=== PATIENT | male | born 1950 | race Caucasian/White ===

== ENCOUNTER 2017-04-24 14:23 | Observation (INO) | payer MEDICARE, OTHER ==
[2017-04-24] MEDS ORDERED: Sodium Chloride 0.9% 10 ML Syringe FLUSH PRN (14:45)
[2017-04-24] MEDS ORDERED: Aspirin 81 MG Tab.Chew PO ONE (14:45)
--- NOTE | 2017-04-24 14:51 | EDM.PDOC ---
ED HPI GENERAL MEDICAL PROBLEM - General Chief Complaint: Chest Pain Stated Complaint: PULSE 94,CHEST PAINS,BLURRINESS Time Seen by Provider: 04/24/17 14:36 Source of Information: Reports: Patient, Family History Limitations: Reports: No Limitations - History of Present Illness INITIAL COMMENTS - FREE TEXT/NARRATIVE: Patient was at home working on his truck bent over when he stood up abruptly he became dizzy lightheaded blurry vision and midsternal chest pain. He went into the house and at his and the human emergency Department right away patient states that he was been having abdominal bit difficulty keeping his balance feels really dizzy and lightheaded along with that he still has midsternal chest pain does not radiate into the shoulders are no however earlier he did say that it was radiating up to his left shoulder. Patient denies any cardiac history shortness of breath no nausea or vomiting Onset: Sudden Onset Time: 01:00 Duration: Hour(s): Location: Reports: Chest, Upper Extremity, Right Quality: Reports: Pressure Severity: Mild (3/10 pain) Associated Symptoms: Reports: Diaphoresis, Nausea/Vomiting Middle Chest Pain Score (Numeric/FACES): 5 - Related Data Allergies Allergy/AdvReac Type Severity Reaction Status Date / Time No Known Allergies Allergy Verified 04/24/17 14:34 Home Meds: Home Meds Gabapentin [Gabapentin] 600 mg PO TID 01/10/14 [History] Methadone HCl [Methadone HCl] 5 mg PO BID 01/10/14 [History] atorvaSTATin [Lipitor] 40 mg PO DAILY 01/10/14 [History] Aspirin [Halfprin] 81 mg PO DAILY 05/13/15 [History] Methotrexate 15 mg PO WEEKLY 05/13/15 [History] Sertraline [Zoloft] 1 tab PO DAILY 05/13/15 [History] Lutein/Minerals/Vit A,C & E [Ocuvite] 1 tab PO DAILY 05/16/15 [History] Meloxicam [Mobic] 15 mg PO DAILY 04/24/17 [History] Omeprazole Magnesium [Prilosec Otc] 40 mg PO DAILY 04/24/17 [History] Pramipexole [Mirapex] 0.5 mg PO BEDTIME 04/24/17 [History] Past Medical History - Past Health History Medical/Surgical History: Denies Medical/Surgical History Cardiovascular History: Reports: High Cholesterol Respiratory History: Reports: Sleep Apnea Gastrointestinal History: Reports: Colon Polyp, GERD, PUD Other Gastrointestinal History: abd. pain and bloating, dyspepsia Musculoskeletal History: Reports: Osteoarthritis, Other (See Below) Other Musculoskeletal History: Restless legs Psychiatric History: Reports: Other (See Below) Other Psychiatric History: irritability Endocrine/Metabolic History: Reports: None Hematologic History: Reports: None Immunologic History: Reports: None Dermatologic History: Reports: Psoriasis - Past Surgical History GI Surgical History: Reports: Cholecystectomy Musculoskeletal Surgical History: Reports: Shoulder Surgery Social & Family History - Family History HEENT: Reports: None Cardiac: Reports: None Respiratory: Reports: None GI: Reports: None - Tobacco Use Smoking Status *Q: Current Every Day Smoker Years of Tobacco use: 25 Packs/Tins Daily: 0.5 - Alcohol Use Days Per Week of Alcohol Use: 2 Number of Drinks Per Day: 2 Total Drinks Per Week: 4 - Recreational Drug Use Recreational Drug Use: No ED ROS GENERAL - Review of Systems Review Of Systems: See Below Constitutional: Reports: Diaphoresis HEENT: Reports: No Symptoms Respiratory: Reports: No Symptoms Cardiovascular: Reports: Chest Pain, Lightheadedness Endocrine: Reports: No Symptoms GI/Abdominal: Reports: No Symptoms : Reports: No Symptoms Musculoskeletal: Reports: No Symptoms Skin: Reports: No Symptoms ED EXAM, GENERAL - Physical Exam Exam: See Below Exam Limited By: No Limitations General Appearance: Alert, WD/WN, No Apparent Distress Respiratory/Chest: No Respiratory Distress, Lungs Clear, Normal Breath Sounds, No Accessory Muscle Use, Chest Non-Tender Cardiovascular: Normal Peripheral Pulses, Regular Rate, Rhythm, No Edema, No Gallop, No Murmur, No Rub GI/Abdominal: Normal Bowel Sounds, Non-Tender, No Organomegaly, No Distention, No Abnormal Bruit, No Mass, Pelvis Stable (Male) Exam: Deferred Rectal (Males) Exam: Deferred Back Exam: Normal Inspection, Full Range of Motion Extremities: Normal Inspection, Normal Range of Motion, Non-Tender, No Pedal Edema Neurological: Alert, Oriented, CN II-XII Intact, Normal Cognition, Normal Gait Psychiatric: Normal Affect, Normal Mood Skin Exam: Warm, Dry, Intact, Normal Color, No Rash EKG INTERPRETATION Time: 14:27 Rhythm: NSR QRS: RBBB ST-T: Normal Comparison: NA - No Prior EKG Course - Vital Signs Last Recorded V/S: Last Vital Signs Temp 36.5 C 04/24/17 14:23 Pulse 80 04/24/17 14:23 Resp 14 04/24/17 14:23 BP 141/65 H 04/24/17 14:23 Pulse Ox 93 L 04/24/17 14:23 - Orders/Labs/Meds Orders: Active Orders 24 hr Category Date Time Status Admission Diagnosis [ADT] Routine ADT 04/24/17 16:09 Ordered Patient Status [ADT] Routine ADT 04/24/17 16:09 Ordered EKG 12 Lead [EKG Documentation Completion] [RC] URGENT Care 04/24/17 14:36 Ordered Chest 1V Frontal [CR] Stat Exams 04/24/17 14:44 Taken Sodium Chloride 0.9% [Saline Flush] Med 04/24/17 14:45 Active 10 ml FLUSH ASDIRECTED PRN Peripheral IV Insertion Adult [OM.PC] Routine Oth 04/24/17 14:45 Ordered Medication Orders Sodium Chloride (Saline Flush) 10 ml FLUSH ASDIRECTED PRN PRN Reason: Keep Vein Open Labs: Laboratory Tests 04/24/17 04/24/17 04/24/17 Range/Units 14:35 14:35 14:51 WBC 5.9 (4.0-10.0) x10^3/uL RBC 4.04 L (4.5-6.0) x10^6/uL Hgb 13.9 L (14.0-18.0) g/dL Hct 40.4 (40.0-52.0) % MCV 100.0 H D (78.0-93.0) fL MCH 34.4 H (26.0-32.0) pg MCHC 34.4 (32.0-36.0) g/dL RDW Coeff of Shaquille 13.8 (10.0-15.0) % Plt Count 164 (130-400) x10^3/uL Neut % (Auto) 68.5 (50.0-80.0) % Lymph % (Auto) 20.7 L (25.0-50.0) % [place] % (Auto) 9.3 (2.0-11.0) % Eos % (Auto) 1.2 (0.0-4.0) % Baso % (Auto) 0.3 (0.2-1.2) % Sodium 142 (136-145) mmol/L Potassium 3.7 (3.5-5.1) mmol/L Chloride 107 (98-107) mmol/L Carbon Dioxide 23 (21-32) mmol/L BUN 22 H (7-18) mg/dL Creatinine 1.0 (0.70-1.30) mg/dL Est Cr Clr Drug Dosing 75.03 mL/min Estimated GFR (MDRD) > 60 Glucose 116 H (74-106) mg/dL Calcium 8.1 L (8.5-10.1) mg/dL Corrected Calcium 8.66 (8.5-10.1) mg/dL Total Bilirubin 0.4 (0.2-1.0) mg/dL AST 20 (15-37) U/L ALT 32 (16-63) U/L Alkaline Phosphatase 116 (46-116) U/L Creatine Kinase 117 (39-308) U/L Creatine Kinase Index 1.1 (0.0-4.0) % CK-MB (CK-2) 1.3 (0.0-3.6) ng/mL POC Troponin I 0.00 (0.00-0.08) ng/mL Total Protein 5.9 L (6.4-8.2) g/dL Albumin 3.3 L (3.4-5.0) g/dL Globulin 2.6 Albumin/Globulin Ratio 1.27 Meds: Medications Generic Name Dose Route Start Last Admin Trade Name Freq PRN Reason Stop Dose Admin Sodium Chloride 10 ml 04/24/17 14:45 Saline Flush FLUSH ASDIRECTED PRN Keep Vein Open Discontinued Medications Generic Name Dose Route Start Last Admin Trade Name Freq PRN Reason Stop Dose Admin Aspirin 324 mg 04/24/17 14:45 04/24/17 14:50 Aspirin PO 04/24/17 14:46 324 mg ONETIME ONE Administration - Re-Assessments/Exams Free Text/Narrative Re-Assessment/Exam: 04/24/17 16:12 EKG cardiac enzymes chest x-ray obtained negative patient states that his chest discomfort is not a 0-1. Vital signs been stable throughout her emergency room visit. However since the patient started having chest pain shortly prior to coming into the emergency department as warranted that we keep him in observation overnight to follow his cardiac enzymes to ensure no cardiac ischemia is noted. Pt is in agrees with this and will be admitted to the hospital for observation Departure - Departure Time of Disposition: 16:13 Disposition: Refer to Observation Condition: Good Clinical Impression: Chest pain in adult Referrals: Luciano Ngo MD [Primary Care Provider] - Forms: ED Department Discharge - My Orders Last 24 Hours: My Active Orders 04/24/17 14:36 EKG 12 Lead [EKG Documentation Completion] [RC] URGENT 04/24/17 14:44 Chest 1V Frontal [CR] Stat 04/24/17 14:45 Sodium Chloride 0.9% [Saline Flush] 10 ml FLUSH ASDIRECTED PRN Peripheral IV Insertion Adult [OM.PC] Routine 04/24/17 16:09 Admission Diagnosis [ADT] Routine Patient Status [ADT] Routine - Assessment/Plan Last 24 Hours: My Active Orders 04/24/17 14:36 EKG 12 Lead [EKG Documentation Completion] [RC] URGENT 04/24/17 14:44 Chest 1V Frontal [CR] Stat 04/24/17 14:45 Sodium Chloride 0.9% [Saline Flush] 10 ml FLUSH ASDIRECTED PRN Peripheral IV Insertion Adult [OM.PC] Routine 04/24/17 16:09 Admission Diagnosis [ADT] Routine Patient Status [ADT] Routine
[2017-04-24 15:26] LABS: CHLORIDE,CL 107 mmol/L (98-107); SODIUM,NA 142 mmol/L (136-145)
[2017-04-24] MEDS ORDERED: Nitroglycerin 0.4 MG Tab.SL SL PRN (16:18)
--- NOTE | 2017-04-24 17:11 | PCM.HP ---
H&P History of Present Illness - General Admit Problem/Dx: Admission Diagnosis/Problem Admission Diagnosis/Problem Chest pain in adult Source of Information: Patient - History of Present Illness Initial Comments - Free Text/Narative: please ED noted for hospital H &P. No changes. Pt is a/o, VSS, no pain, sob, Chest pain, dizziness and lightheaded. Middle Chest Pain Score (Numeric/FACES): 5 - Related Data Allergies/Adverse Reactions: Allergies Allergy/AdvReac Type Severity Reaction Status Date / Time No Known Allergies Allergy Verified 04/24/17 16:50 Home Medications: Home Meds Gabapentin [Gabapentin] 600 mg PO DAILY@12 01/10/14 [History] atorvaSTATin [Lipitor] 40 mg PO DAILY 01/10/14 [History] Aspirin [Halfprin] 81 mg PO DAILY 05/13/15 [History] Methotrexate 15 mg PO WEEKLY 05/13/15 [History] Sertraline [Zoloft] 50 mg PO DAILY 05/13/15 [History] Lutein/Minerals/Vit A,C & E [Ocuvite] 1 tab PO DAILY 05/16/15 [History] Gabapentin [Neurontin] 900 mg PO DAILY@07 04/24/17 [History] Gabapentin [Neurontin] 900 mg PO DAILY@17 04/24/17 [History] Meloxicam [Mobic] 15 mg PO DAILY 04/24/17 [History] Methadone 5 mg PO DAILY@04/24/17 [History] Methadone 10 mg PO DAILY@06 04/24/17 [History] Omeprazole Magnesium [Prilosec Otc] 40 mg PO DAILY 04/24/17 [History] Pramipexole [Mirapex] 0.5 mg PO BEDTIME 04/24/17 [History] Past Medical History - Past Health History Medical/Surgical History: Denies Medical/Surgical History Cardiovascular History: Reports: High Cholesterol Respiratory History: Reports: Sleep Apnea Gastrointestinal History: Reports: Colon Polyp, GERD, PUD Other Gastrointestinal History: abd. pain and bloating, dyspepsia Musculoskeletal History: Reports: Osteoarthritis, Other (See Below) Other Musculoskeletal History: Restless legs Psychiatric History: Reports: Other (See Below) Other Psychiatric History: irritability Endocrine/Metabolic History: Reports: None Hematologic History: Reports: None Immunologic History: Reports: None Dermatologic History: Reports: Psoriasis - Past Surgical History GI Surgical History: Reports: Cholecystectomy Musculoskeletal Surgical History: Reports: Shoulder Surgery Social & Family History - Family History HEENT: Reports: None Cardiac: Reports: None Respiratory: Reports: None GI: Reports: None - Tobacco Use Smoking Status *Q: Current Every Day Smoker Years of Tobacco use: 30 Packs/Tins Daily: 0.5 - Alcohol Use Days Per Week of Alcohol Use: 3 Number of Drinks Per Day: 1 Total Drinks Per Week: 3 - Recreational Drug Use Recreational Drug Use: No H&P Review of Systems - Review of Systems: Review Of Systems: ROS reveals no pertinent complaints other than HPI. Exam - Exam Exam: See Below - Vital Signs Vital Signs: Last Vital Signs Temp 36.6 C 04/24/17 16:36 Pulse 60 04/24/17 16:36 Resp 16 04/24/17 16:36 BP 128/59 L 04/24/17 16:36 Pulse Ox 95 04/24/17 16:36 Weight: 89.131 kg - Patient Data Result Diagrams: 04/24/17 14:35 04/24/17 14:35 *Q Meaningful Use (ADM) - VTE *Q VTE Criteria *Q: - Stroke *Q Stroke Criteria *Q: - AMI *Q AMI Criteria *Q: Problem List Initiated/Reviewed/Updated: Yes Orders Last 24hrs: Active Orders 24 hr Category Date Time Status Cardiac Education [RC] .PRN Care 04/24/17 16:18 Active Cardiac Monitoring [RC] 06,10,14,18,22,02 Care 04/24/17 16:18 Active Regular Diet [DIET] Diet 04/24/17 Dinner Active CK W CKMB [CHEM] Stat Lab 04/25/17 08:00 Ordered CK W CKMB [CHEM] Timed Lab 04/24/17 19:00 Ordered LIPID PANEL [CHEM] Timed Lab 04/25/17 08:00 Ordered TROPONIN I [CHEM] Stat Lab 04/25/17 08:00 Ordered TROPONIN I [CHEM] Timed Lab 04/24/17 19:00 Ordered Aspirin [Halfprin] Med 04/25/17 08:00 Active 81 mg PO DAILY Nitroglycerin [Nitrostat] Med 04/24/17 16:18 Active 0.4 mg SL Q5M PRN Medication Orders Aspirin (Halfprin) 81 mg PO DAILY GEOVANNI Nitroglycerin (Nitrostat) 0.4 mg SL Q5M PRN PRN Reason: Chest Pain Stop: 04/25/17 16:21 Sodium Chloride (Saline Flush) 10 ml FLUSH ASDIRECTED PRN PRN Reason: Keep Vein Open
[2017-04-24] MEDS ORDERED: Methadone 5 MG Tab PO SCH (17:15)
[2017-04-24] MEDS ORDERED: Gabapentin 300 MG Cap PO SCH (17:15)
[2017-04-24] MEDS ORDERED: Acetaminophen 500 MG Tab PO PRN (17:44)
[2017-04-24] MEDS ORDERED: Beta-Carotene (Vitamin A) w/Vitamin C & E plus Minerals Tab PO SCH (17:45)
[2017-04-24] MEDS ORDERED: Pramipexole 0.5 MG Tab PO SCH (20:00)
[2017-04-25 05:32] VITALS: BP 113/59
[2017-04-25] MEDS ORDERED: Methadone 5 MG Tab PO SCH (06:00)
[2017-04-25] MEDS ORDERED: Gabapentin 300 MG Cap PO SCH ×2 (07:00→12:00)
[2017-04-25] MEDS ORDERED: Omeprazole 20 MG Cap.CR PO SCH (07:00)
[2017-04-25] MEDS ORDERED: Sertraline 50 MG Tab PO SCH (08:00)
[2017-04-25] MEDS ORDERED: Beta-Carotene (Vitamin A) w/Vitamin C & E plus Minerals Tab PO SCH (08:00)
[2017-04-25] MEDS ORDERED: Meloxicam 7.5 MG Tab PO SCH (08:00)
[2017-04-25] MEDS ORDERED: Aspirin 81 MG Tab.EC PO SCH ×2 (08:00)
[2017-04-25] MEDS ORDERED: atorvaSTATin 40 MG Tab PO SCH (08:00)
--- NOTE | 2017-04-25 08:20 | PCM.DCSUM1 ---
Discharge Summary - Hospital Course HPI Initial Comments: 66-year-old male patient was admitted to the observation unit at [facility] yesterday for chest pain. Apparently yesterday the patient was working on a vehicle at home and when he stood up abruptly he became dizzy, lightheaded, blurry vision, and midsternal chest pain. The brought the patient to the emergency room at which time it appears the chest pain had resolved. The patient was admitted to the observation unit for monitoring serial cardiac enzymes with EKGs. The patient does not have any overt cardiac history problems outside of high cholesterol. The patient also became somewhat diaphoretic while he was having the chest pain. The patient did not have any shortness of breath. The patient did not have any nausea or vomiting at the time of this chest pain at home. The patient has not had any documented previous workup for any cardiac etiologies. - Discharge Data Discharge Date: 04/25/17 Discharge Disposition: Home, Self-Care 01 Condition: Good - Discharge Diagnosis/Problem(s) (1) Chest pain in adult SNOMED Code(s): 21700269 ICD Code: R07.9 - CHEST PAIN, UNSPECIFIED Status: Resolved Priority: High Current Visit: Yes Onset Date: ~04/24/17 Problem Details: Patient remained chest pain free while admitted. Would recommend outpatient stress test in the near future. (2) Lightheadedness SNOMED Code(s): 209365921 ICD Code: R42 - DIZZINESS AND GIDDINESS Status: Resolved Priority: Medium Current Visit: Yes Onset Date: ~04/24/17 (3) Dizziness SNOMED Code(s): 406711355 ICD Code: R42 - DIZZINESS AND GIDDINESS Status: Resolved Priority: Medium Current Visit: Yes Onset Date: ~04/24/17 - Patient Summary/Data Operative Procedure(s) Performed: None Labs Pending at D/C: None Recommended Follow-up Testing/Procedures: Outpatient stress test Planned Operative Procedure(s) after DC: None Hospital Course: Overall, the patient did very well during his observation stay. The patient remained hemodynamically stable and afebrile. The patient's cardiac enzymes and EKG remained normal and unchanged. The patient did not have any further chest pain. The patient did not have any trouble with urination or bowel movements. The patient was able to ambulate independently in the room. Patient had no specific complaints at the time of discharge. - Patient Instructions Diet: Heart Healthy Diet Activity: No Strenuous Activities, Rest and Relax Today Driving: Do Not Drive Showering/Bathing: May Shower Notify Provider of: Fever, Increased Pain, Nausea and/or Vomiting - Discharge Plan Home Medications: Home Meds Gabapentin 600 mg PO DAILY@12 01/10/14 [History] atorvaSTATin [Lipitor] 40 mg PO DAILY 01/10/14 [History] Aspirin [Halfprin] 81 mg PO DAILY 05/13/15 [History] Methotrexate 15 mg PO WEEKLY 05/13/15 [History] Sertraline [Zoloft] 50 mg PO DAILY 05/13/15 [History] Lutein/Minerals/Vit A,C & E [Ocuvite] 1 tab PO DAILY 05/16/15 [History] Gabapentin [Neurontin] 900 mg PO DAILY@07 04/24/17 [History] Gabapentin [Neurontin] 900 mg PO DAILY@04/24/17 [History] Meloxicam [Mobic] 15 mg PO DAILY 04/24/17 [History] Methadone 5 mg PO DAILY@04/24/17 [History] Methadone 10 mg PO DAILY@04/24/17 [History] Omeprazole Magnesium [Prilosec Otc] 40 mg PO DAILY 04/24/17 [History] Pramipexole [Mirapex] 0.5 mg PO BEDTIME 04/24/17 [History] Acetaminophen [Tylenol Extra Strength] 500 mg PO Q4H PRN tablet 04/25/17 [Rx] Patient Handouts: Nonspecific Chest Pain Forms: ED Department Discharge Referrals: Luciano Ngo MD [Primary Care Provider] - - Discharge Summary/Plan Comment DC Time >30 min.: Yes Discharge Summary/Plan Comment: 66-year-old patient with a past medical history of high cholesterol sleep apnea GERD and osteoarthritis was admitted to the observation unit at [facility] for chest pain. The patient remained hemodynamically stable and afebrile and all cardiac enzymes and EKGs were normal during his stay. We will continue the patient on his current medications without any changes. I would recommend rest and relaxation today with no strenuous activities. I do recommend the patient follow-up with his primary care provider in the next 7 days. I would also recommend the patient have an outpatient stress test. Patient was discharged in stable condition and pain-free. - General Info Date of Service: 04/25/17 Admission Dx/Problem (Free Text: Admission Diagnosis/Problem Admission Diagnosis/Problem Chest pain in adult Dizziness Lightheadedness Subjective Update: Patient offers no specific complaints. He states he is feeling well and is ready to go home. Functional Status: Reports: Pain Controlled, Tolerating Diet, Ambulating, Urinating Numeric/FACES Score: 0 - Review of Systems General: Denies: Fever, Weakness Pulmonary: Denies: Shortness of Breath, Cough Cardiovascular: Denies: Chest Pain, Palpitations Gastrointestinal: Denies: Abdominal Pain, Nausea, Vomiting Skin: Reports: No Symptoms Neurological: Reports: No Symptoms. Denies: Dizziness, Headache - Patient Data Vitals - Most Recent: Last Vital Signs Temp 36.4 C 04/25/17 05:31 Pulse 53 L 04/25/17 05:31 Resp 18 04/25/17 05:31 BP 113/59 L 04/25/17 05:31 Pulse Ox 96 04/25/17 05:31 Weight - Most Recent: 89.131 kg I&O - Last 24 hours: Intake & Output 04/24/17 04/25/17 04/25/17 22:59 06:59 14:59 Intake Total 240 240 380 Output Total 950 950 Balance -710 -710 380 Lab Results - Last 24 hrs: Laboratory Results - last 24 hr 04/24/17 04/25/17 Range/Units 19:00 07:20 Creatine Kinase 121 98 (39-308) U/L Creatine Kinase Index 1.0 1.1 (0.0-4.0) % CK-MB (CK-2) 1.2 1.1 (0.0-3.6) ng/mL Troponin I < 0.017 < 0.017 (<=0.056) ng/mL Triglycerides 71 (0-149) mg/dL Cholesterol 146 (0-199) mg/dL LDL Cholesterol, Calc 76 (0-130) mg/dL HDL Cholesterol 56 (40-59) mg/dL Med Orders - Current: Current Medications Acetaminophen (Tylenol Extra Strength) 500 mg PO Q4H PRN PRN Reason: Pain Last Admin: 04/24/17 17:50 Dose: 500 mg Aspirin (Halfprin) 81 mg PO DAILY GEOVANNI Atorvastatin Calcium (Lipitor) 40 mg PO DAILY GEOVANNI Gabapentin (Neurontin) 600 mg PO DAILY@1200 [facility] Gabapentin (Neurontin) 900 mg PO DAILY@0700 [facility] Last Admin: 04/25/17 06:28 Dose: Not Given Gabapentin (Neurontin) 900 mg PO DAILY@1700 [facility] Last Admin: 04/24/17 17:22 Dose: 900 mg Meloxicam (Mobic) 15 mg PO DAILY [facility] Methadone HCl (Methadone) 5 mg PO DAILY@1700 [facility] Last Admin: 04/24/17 17:22 Dose: 5 mg Methadone HCl (Methadone) 10 mg PO DAILY@0600 [facility] Last Admin: 04/25/17 06:28 Dose: Not Given Methotrexate (Methotrexate) 15 mg PO Mo@0900 [facility] Multivitamins/Minerals (Prosight) 1 tab PO DAILY@17 [facility] Last Admin: 04/24/17 17:42 Dose: Not Given Nitroglycerin (Nitrostat) 0.4 mg SL Q5M PRN PRN Reason: Chest Pain Stop: 04/25/17 16:21 Omeprazole (Omeprazole) 40 mg PO DAILY@0700 [facility] Last Admin: 04/25/17 06:28 Dose: Not Given Pramipexole Dihydrochloride (Mirapex) 0.5 mg PO BEDTIME [facility] Last Admin: 04/24/17 21:15 Dose: 0.5 mg Sertraline HCl (Zoloft) 50 mg PO DAILY [facility] Sodium Chloride (Saline Flush) 10 ml FLUSH ASDIRECTED PRN PRN Reason: Keep Vein Open Discontinued Medications Aspirin (Aspirin) 324 mg PO ONETIME ONE Stop: 04/24/17 14:46 Last Admin: 04/24/17 14:50 Dose: 324 mg Aspirin (Halfprin) 81 mg PO DAILY [facility] Multivitamins/Minerals (Prosight) 1 tab PO DAILY [facility] Last Admin: 04/24/17 17:23 Dose: 1 tab - Exam General: Reports: Alert, Oriented Neck: Reports: Supple Lungs: Reports: Clear to Auscultation, Normal Respiratory Effort Cardiovascular: Reports: Regular Rate, Regular Rhythm, No Murmurs GI/Abdominal Exam: Normal Bowel Sounds, Soft, Non-Tender Skin: Reports: Warm, Dry, Intact Neurological: Reports: No New Focal Deficit *Q Meaningful Use (DIS) - VTE *Q VTE Criteria *Q: No risk for falls - Stroke *Q Stroke Criteria *Q: - AMI *Q AMI Criteria *Q:
[2017-04-26] MEDS ORDERED: Methotrexate 2.5 MG Tab PO SCH (09:00)
== END 2017-04-25 08:50 | disposition home or self-care (01) ==
LOC: VM.ED 14:23 → VM.MS 16:09
PROVIDERS: ADMIT Nurse Practitioner; ATTEND Nurse Practitioner
DX: R07.9 Chest pain, unspecified (principal); R42 Dizziness and giddiness; E78.00 Pure hypercholesterolemia, unspecified; G47.30 Sleep apnea, unspecified; K21.9 Gastro-esophageal reflux disease without esophagitis; Z79.82 Long term (current) use of aspirin; Z79.899 Other long term (current) drug therapy; F17.210 Nicotine dependence, cigarettes, uncomplicated
CPT/HCPCS: 36415; 71045; 80053; 80061; 82550; 82553; 84484; 85025; 93005; 99285; A9270; 99217; 99284-GF; G0378

== ENCOUNTER 2023-08-06 08:21 | Emergency (ER) | payer MEDICARE, OTHER ==
[2023-08-06] MEDS ORDERED: Sodium Chloride 0.9% 10 ML Syringe FLUSH PRN (08:41)
[2023-08-06 08:53] LABS: BASOPHILS PERCENT AUTO 0.4 % (0.2-1.2); EOSINOPHILS ABSOLUTE AUTO 0.1 x10^3/uL (0.0-0.5); EOSINOPHILS PERCENT AUTO 1.6 % (0.0-4.0); HEMOGLOBIN 14.6 g/dL (14.0-18.0); IMMATURE GRAN ABSOLUTE AUTO 0.01 x10^3/uL (0.00-0.07); LYMPHOCYTES ABSOLUTE AUTO 1.2 x10^3/uL (1.0-4.8); LYMPHOCYTES PERCENT AUTO 22.9 % (25.0-50.0); MEAN CORPUSCULAR HEMOGLOBIN 34.8 pg (26.0-32.0); MEAN CORPUSCULAR HGB CONC 34.8 g/dL (32.0-36.0); MONOCYTES ABSOLUTE AUTO 0.5 x10^3/uL (0.0-0.8); NEUTROPHILS ABSOLUTE AUTO 3.3 x10^3/uL (1.8-7.7); NEUTROPHILS PERCENT AUTO 64.9 % (50.0-80.0); PLATELET COUNT,PLT 161 x10^3/uL (130-400); WHITE BLOOD CELL COUNT,WBC 5.1 x10^3/uL (4.0-10.0)
[2023-08-06] MEDS: Ondansetron 4 MG/2 ML SDV IVPUSH ONE (09:08)
[2023-08-06 09:12] LABS: PROTHROMBIN TIME 10.1 SEC (8.9-11.5)
[2023-08-06 09:17] LABS: LACTIC ACID 1.2 mmol/L (0.4-2.0)
[2023-08-06 09:21] LABS: A/G RATIO 1.12; ALANINE AMINOTRANSFERASE,ALT 37 U/L (16-63); ALBUMIN 3.8 g/dL (3.4-5.0); ALKALINE PHOSPHATASE 104 U/L (46-116); ASPARTATE AMNIOTRANSFERASE,AST 24 U/L (15-37); BILIRUBIN TOTAL 0.6 mg/dL (0.2-1.0); BLOOD UREA NITROGEN,BUN 30 mg/dL (7-18); CALCIUM 9.4 mg/dL (8.5-10.1); CARBON DIOXIDE,CO2 26 mmol/L (21-32); CHLORIDE,CL 106 mmol/L (98-107); GLUCOSE RANDOM 109 mg/dL (70-99); MAGNESIUM 2.2 mg/dL (1.8-2.4); POTASSIUM,K 3.7 mmol/L (3.5-5.1); PROTEIN TOTAL,TP 7.2 g/dL (6.4-8.2); SODIUM,NA 144 mmol/L (136-145)
[2023-08-06 09:22] LABS: ANION GAP 15.7 mmol/L (5-15); C-REACTIVE PROTEIN < 0.50 mg/dL (<=0.50); ESTIMATED GFR 79 mL/min (>=60)
[2023-08-06 10:41] VITALS: BP 99/58; PULSE 99
== END 2023-08-06 10:30 | disposition home or self-care (01) ==
LOC: VM.ED 08:21
DX: I48.91 Unspecified atrial fibrillation (principal); J44.1 Chronic obstructive pulmonary disease with (acute) exacerbation; E78.00 Pure hypercholesterolemia, unspecified; F17.210 Nicotine dependence, cigarettes, uncomplicated; Z79.899 Other long term (current) drug therapy; Z79.82 Long term (current) use of aspirin; Z90.49 Acquired absence of other specified parts of digestive tract
CPT/HCPCS: 71045; 80053; 83605; 83735; 84484; 85025; 85610; 85730; 86140; 93005; 96374; 99285; J2405; 93010; 99284

== ENCOUNTER 2023-08-25 06:50 | Emergency (ER) | payer MEDICARE, OTHER ==
[2023-08-25 07:20] VITALS: BP 121/60; PULSE 61
[2023-08-25 07:34] LABS: BASOPHILS PERCENT AUTO 0.4 % (0.2-1.2); EOSINOPHILS ABSOLUTE AUTO 0.2 x10^3/uL (0.0-0.5); EOSINOPHILS PERCENT AUTO 1.9 % (0.0-4.0); HEMATOCRIT 37.8 % (40.0-52.0); HEMOGLOBIN 13.1 g/dL (14.0-18.0); IMMATURE GRAN ABSOLUTE AUTO 0.02 x10^3/uL (0.00-0.07); LYMPHOCYTES ABSOLUTE AUTO 1.3 x10^3/uL (1.0-4.8); LYMPHOCYTES PERCENT AUTO 15.5 % (25.0-50.0); MEAN CORPUSCULAR HEMOGLOBIN 34.7 pg (26.0-32.0); MEAN CORPUSCULAR HGB CONC 34.7 g/dL (32.0-36.0); MONOCYTES ABSOLUTE AUTO 0.9 x10^3/uL (0.0-0.8); MONOCYTES PERCENT AUTO 10.6 % (2.0-11.0); NEUTROPHILS PERCENT AUTO 71.4 % (50.0-80.0); PLATELET COUNT,PLT 181 x10^3/uL (130-400); RED BLOOD CELL COUNT 3.78 x10^6/uL (4.5-6.0); WHITE BLOOD CELL COUNT,WBC 8.4 x10^3/uL (4.0-10.0)
[2023-08-25 07:35] LABS: APPEARANCE,URINE CLEAR (CLEAR); BILIRUBIN,URINE NEGATIVE (NEGATIVE); COLOR,URINE YELLOW (YELLOW); GLUCOSE,URINE NEGATIVE (NEGATIVE); KETONES,URINE NEGATIVE (NEGATIVE); LEUKOCYTE ESTERASE,URINE NEGATIVE (NEGATIVE); NITRITE,URINE NEGATIVE (NEGATIVE); OCCULT BLOOD,URINE NEGATIVE (NEGATIVE); PH,URINE 5.5 (5.0-8.0); PROTEIN,URINE NEGATIVE (NEGATIVE); UROBILINOGEN,URINE 0.2 EU/dL (0.2)
[2023-08-25] MEDS: Lactated Ringers 1,000 ML IV SCH (07:42)
[2023-08-25 07:44] LABS: BACTERIA,URINE RARE /HPF (NOT SEEN); RBC,URINE NOT SEEN /HPF (NOT SEEN); SQUAMOUS EPITHELIAL CELLS,UR RARE /HPF (NOT SEEN); WBC,URINE NOT SEEN /HPF (NOT SEEN)
[2023-08-25 07:50] LABS: A/G RATIO 0.97; ALBUMIN 3.2 g/dL (3.4-5.0); BILIRUBIN TOTAL 0.7 mg/dL (0.2-1.0); CALCIUM 8.8 mg/dL (8.5-10.1); EST CRCL DRUG DOSING (CG) 61.51 mL/min; POTASSIUM,K 3.9 mmol/L (3.5-5.1); PROTEIN TOTAL,TP 6.5 g/dL (6.4-8.2)
[2023-08-25 07:52] LABS: ANION GAP 13.9 mmol/L (5-15)
[2023-08-25] MEDS: Iopamidol 612 MG/ML 100 ML Bottle IVPUSH ONE (08:54)
== END 2023-08-25 10:30 | disposition home or self-care (01) ==
LOC: VM.ED 06:50
DX: K59.00 Constipation, unspecified (principal); I48.91 Unspecified atrial fibrillation; E78.00 Pure hypercholesterolemia, unspecified; K21.9 Gastro-esophageal reflux disease without esophagitis; Z79.82 Long term (current) use of aspirin; Z79.899 Other long term (current) drug therapy; Z79.01 Long term (current) use of anticoagulants; Z90.49 Acquired absence of other specified parts of digestive tract
CPT/HCPCS: 74177; 80053; 81001; 85025; 96360; 96361; 99284; J7120; Q9967

== ENCOUNTER 2024-12-03 06:50 | Emergency (ER) | payer MEDICARE ==
[2024-12-03 07:11] VITALS: BP 125/60; PULSE 63
== END 2024-12-03 07:56 | disposition home or self-care (01) ==
LOC: VM.ED 06:50
DX: M79.601 Pain in right arm (principal); M79.602 Pain in left arm; Z79.82 Long term (current) use of aspirin; Z79.899 Other long term (current) drug therapy; Z79.01 Long term (current) use of anticoagulants; E78.00 Pure hypercholesterolemia, unspecified; Z90.49 Acquired absence of other specified parts of digestive tract
CPT/HCPCS: 99283